=== PATIENT | female | born 1950 | race African-American/Black ===

== ENCOUNTER 2021-03-06 09:04 | Outpatient (CLI) | payer MEDICARE ==
[~2021-03-06 09:04] MED LIST: Iopamidol 370 76% 100 ML VIAL ONE
== END 2021-03-06 09:05 | disposition home or self-care (01) ==
LOC: CT 09:04
PROVIDERS: ATTEND Physician Assistant Medical
DX: R10.13 Epigastric pain (principal); R19.7 Diarrhea, unspecified; R63.0 Anorexia; D25.9 Leiomyoma of uterus, unspecified
CPT/HCPCS: 74177; Q9967

== ENCOUNTER 2021-09-01 07:56 | Outpatient (CLI) | payer MEDICARE ==
[2021-09-01 08:32] LABS: Estimated GFR-MDRD - POC Greater than 90
[2021-09-01] MEDS ORDERED: Iopamidol 370 76% 100 ML VIAL ONE (09:21)
== END 2021-09-01 07:57 | disposition home or self-care (01) ==
LOC: BICCT 07:56
PROVIDERS: ATTEND Internal Medicine
DX: R93.3 Abnormal findings on diagnostic imaging of other parts of digestive tract (principal); R63.0 Anorexia; K57.30 Diverticulosis of large intestine without perforation or abscess without bleeding; N28.1 Cyst of kidney, acquired; D25.9 Leiomyoma of uterus, unspecified
CPT/HCPCS: 74177; 82565; Q9967

== ENCOUNTER 2025-02-19 08:37 | Outpatient (CLI) | payer OTHER | END 2025-02-19 08:38 | disposition home or self-care (01) | LOC: CT 08:37 | PROVIDERS: ATTEND Family Medicine | DX: Z12.2 Encounter for screening for malignant neoplasm of respiratory organs (principal); Z87.891 Personal history of nicotine dependence | CPT/HCPCS: 71271 ==